=== PATIENT | male | born 1965 | race Caucasian/White ===

== ENCOUNTER 2019-10-08 17:44 | Emergency (ER) | payer SELFPAY ==
[~2019-10-08] VITALS: Ht 182.9 cm; Wt 149.7 kg
--- NOTE | 2019-10-08 17:54 | NUR ---
PT BIBRA TO ER BED 03. PER REPORT, PT WAS C/O CHEST PALPITATION. SVT NOTED IN THE FIELD. WAS GIVEN ADENOSINE 6MG AND 12MG. CONVERTED. NSR UPON ARRIVAL. PT IS GERMAN SPEAKING. PLACED ON MONITOR. VSS. AWAITING MD ATKINS.
[2019-10-08 18:20] LABS: BASOPHILS # (AUTO) 0.2 /CMM (0.0-0.2); EOSINOPHILS % (AUTO) 1.6 % (0.0-6.0); HEMATOCRIT 48 % (39-51); HEMOGLOBIN 16.2 g/dL (13.5-17.5); LYMPHOCYTES # (AUTO) 1.9 /CMM (0.8-4.8); LYMPHOCYTES % (AUTO) 22.4 % (20.0-44.0); MEAN CORPUSCULAR HGB CONC 34 g/dl (31.0-36.0); MEAN CORPUSCULAR VOLUME 89 fL (80-96); MONOCYTES # (AUTO) 0.5 /CMM (0.1-1.30); MONOCYTES % (AUTO) 6.3 % (2.0-12.0); NEUTROPHILS # (AUTO) 5.7 /CMM (1.8-8.9); NEUTROPHILS % (AUTO) 67.7 % (43.0-81.0); PLATELET COUNT (AUTO) 334 /CMM (150-450); RED BLOOD CELL COUNT(AUTO) 5.37 MIL/uL (4.5-6.0); WHITE BLOOD COUNT (AUTO) 8.5 K/uL (4.3-11.0)
[2019-10-08 18:23] LABS: CALCIUM, SERUM 9.2 mg/dL (8.5-10.1); CARBON DIOXIDE 26 mmol/L (21-32); CHLORIDE 105 mmol/L (98-107); CREATININE 1.3 mg/dL (0.6-1.3); GLUCOSE 154 mg/dL (74-106); POTASSIUM 3.5 mmol/L (3.5-5.1); SODIUM SERUM 143 mmol/L (136-145); UREA NITROGEN, BLOOD 17 mg/dL (7-18)
--- NOTE | 2019-10-08 18:50 | NUR ---
DR GONG AT BEDSIDE FOR EVAL.
--- NOTE | 2019-10-08 19:00 | NUR ---
REPORT GIVEN TO HEAVY MACHINERY ASSEMBLER NURSE LORELEI SPICER RN FOR DEBBY.
--- NOTE | 2019-10-08 19:09 | NUR ---
RECEIVED REPORT FROM GERONIMO SOLANO FOR DEBBY, PT IS AAOX4, NOT IN RESPIRATORY DISTRESS ,V/S STABLE, KEPT RESTED AND COMFORTABLE, WILL CONTINUE TO MONITOR.
--- NOTE | 2019-10-08 20:04 | NUR ---
ER PHLEB AT BEDSIDE FOR REPEAT TROPONIN.
[2019-10-08] MEDS ORDERED: METOPROLOL TARTRATE 50 MG TABLET ONE (20:55)
[2019-10-08] MEDS ORDERED: METOPROLOL TARTRATE 25 MG TABLET PO ONE (21:00)
[2019-10-08 21:02] VITALS: BP 145/92
--- NOTE | 2019-10-08 21:02 | NUR ---
IV removed. Catheter intact and site benign. Pressure and 4x4 applied to site. No bleeding noted. Patient discharged to home in stable condition. Written and verbal after care instructions given. Patient verbalizes understanding of instruction.
[2019-10-24] MEDS ORDERED: CLOP75TA15 PO (15:42)
[2019-10-24] MEDS ORDERED: VALS80TA2 PO (15:42)
== END 2019-10-08 21:03 | disposition home or self-care (01) ==
LOC: ER 17:47
DX: I47.1 Supraventricular tachycardia (principal)
CPT/HCPCS: 36415; 71045-TC; 80048-TC; 84484-TC; 85025-TC; 85730-TC

== ENCOUNTER 2019-10-22 14:25 | Inpatient (IN) | payer SELFPAY ==
[~2019-10-22] VITALS: Ht 182.9 cm; Wt 147.4 kg
[2019-10-22 15:18] LABS: BASOPHILS % (AUTO) 0.5 % (0.0-2.0); HEMATOCRIT 46 % (39-51); HEMOGLOBIN 15.5 g/dL (13.5-17.5); LYMPHOCYTES % (AUTO) 25.9 % (20.0-44.0); MEAN CORPUSCULAR HGB CONC 34 g/dl (31.0-36.0); MEAN CORPUSCULAR VOLUME 89 fL (80-96); MONOCYTES # (AUTO) 0.5 /CMM (0.1-1.30); MONOCYTES % (AUTO) 7.1 % (2.0-12.0); NEUTROPHILS # (AUTO) 4.9 /CMM (1.8-8.9); NEUTROPHILS % (AUTO) 64.5 % (43.0-81.0); PLATELET COUNT (AUTO) 304 /CMM (150-450); RED BLOOD CELL COUNT(AUTO) 5.17 MIL/uL (4.5-6.0); WHITE BLOOD COUNT (AUTO) 7.6 K/uL (4.3-11.0)
[2019-10-22 15:22] LABS: CALCIUM, SERUM 8.6 mg/dL (8.5-10.1); CREATININE 1.2 mg/dL (0.6-1.3); POTASSIUM 3.2 mmol/L (3.5-5.1)
[2019-10-22 15:35] LABS: ALBUMIN 3.9 g/dL (3.4-5.0); BILIRUBIN,DIRECT 0.1 mg/dL (0.0-0.2); BILIRUBIN,TOTAL 0.3 mg/dL (0.2-1.0); TOTAL PROTEIN, SERUM 7.6 g/dL (6.4-8.2)
--- NOTE | 2019-10-22 15:41 | NUR ---
Patient came to ED BIBN EMS HR 190 see triage note . Patient @ this moment denies pain hes on monitor ,gown no family @ bedside monitor SrR continue to monitor
[2019-10-22] MEDS ORDERED: ATOR40TA PO (16:34)
[2019-10-22] MEDS ORDERED: HYDR25TA4 PO (16:34)
[2019-10-22] MEDS ORDERED: ASPI-1169 PO (16:34)
[2019-10-22] MEDS ORDERED: LOSA50TA39 PO (16:34)
[2019-10-22] MEDS ORDERED: METO25TA3 PO (16:34)
[2019-10-22] MEDS ORDERED: POTASSIUM CHLORIDE 20 MEQ TAB.PRT.SR PO ONE ×2 (16:54→17:00)
[2019-10-22] MEDS ORDERED: IV NS 0.9% 1,000 ML BAG IV ONE (17:00)
[2019-10-22] MEDS ORDERED: Magnesium 1GM/D5W 100ML PREMIX 100 ML IV ONE (17:22)
--- NOTE | 2019-10-22 17:28 | NUR ---
Patient awake alert non distress Sr in the monitor patient on the phone talking to his son his son is up to date regarding plan of care continue to monitor
[2019-10-22] MEDS ORDERED: Magnesium 1GM/D5W 100ML PREMIX 100 ML IV SCH (17:30)
--- NOTE | 2019-10-22 18:11 | NUR ---
Called Lab made aware to draw troponin
[2019-10-22] MEDS ORDERED: ASPIRIN 81 MG TAB.CHEW PO ONE (19:00)
--- NOTE | 2019-10-22 19:10 | NUR ---
Transfer care report to Mary Ann MELTON
[2019-10-22] MEDS ORDERED: ASPIRIN 81 MG TAB.CHEW ONE (19:17)
[2019-10-22] MEDS ORDERED: HEPARIN INFUSION/D5W 500 ML IV ONE (19:35)
[2019-10-22] MEDS: HEPARIN INFUSION/D5W 500 ML IV PRN (19:57)
--- NOTE | 2019-10-22 20:14 | NUR ---
CALLED TO GIVE REPORT,RN NOT AVAILABLE. RN WILL CALL BACK
--- NOTE | 2019-10-22 20:39 | NUR ---
REPORT GIVEN TO GERONIMO GOODWIN
--- NOTE | 2019-10-22 21:23 | NUR ---
PT TRANSFERRED TO ROOM IN STABLE CONDITION
[2019-10-22] MEDS ORDERED: HEPARIN INFUSION/D5W 500 ML IV PRN (21:30)
[2019-10-22] MEDS ORDERED: ACETAMINOPHEN 325 MG TABLET PO PRN (21:30)
[2019-10-22] MEDS ORDERED: Z GUARD REMEDY 2 OZ OINT TP PRN (21:30)
[2019-10-22] MEDS ORDERED: ONDANSETRON HCL/PF 4 MG/2 ML VIAL IVP PRN (21:30)
--- NOTE | 2019-10-22 21:35 | NUR ---
RN OPENING NOTES RECEIVED REPORT FROM TECHNICIANS AND TRADES WORKERS STACEY. Pt ARRIVED TO THE FLOOR VIA GURNEY, WAS ABLE TO AMBULATE WITH STEADY GAIT TO ROOM BED. NO S/S OF ACUTE DISTRESS OR SOB NOTED. Pt DENIES HAVING ANY PAIN OR DISCOMFORT. Pt IS A/OX3, VERBAL, ABLE TO MAKE NEEDS KNOWN, URUGUAYAN SPEAKING ONLY. SPOKE WITH FAMILY MEMBER ON THE PHONE TO HELP TRANSLATE. Pt REFUSED SKIN ASSESSMENT; STATED THAT HE HAS NO WOUNDS ON HIS BODY. IV ACCESS ON RFA #18G, HEPARIN DRIP INFUSING FROM ER @1200UN/HR. 2ND IV ACCESS LOCATED ON LHAND #18G, SL. ON TELE MONITOR, WITH TELE READING SR 64. SAFETY MEASURES IN PLACE. BED LOW, LOCKED, HOB ELEVATED, SIDE RAILS UP, CALL LIGHT AND BEDSIDE TABLE WITHIN REACH. WILL CONTINUE TO MONITOR Pt's CONDITION AND SAFETY THROUGHOUT THE NIGHT.
[2019-10-22 22:30] VITALS: BP 152/90
[2019-10-22] MEDS: ATORVASTATIN 40 MG TABLET PO SCH (22:59)
--- NOTE | 2019-10-22 23:00 | NUR ---
RN NOTES MICHELLE MOORE PLACED NEW HEPARIN ORDER AND DC'd ER HEPARIN ORDER. CLARIFIED WITH KITCHEN LEAD HOSPITALIST MICHELLE MOORE, SAID TO CONTINUE THE SAME HEPARIN BAG FROM ER WITH THE SAME DRIP RATE OF 1200UN/HR. CALLED PHARMACY IN REGARDS TO THE NEW HEPARIN ORDER; EXPLAINED THAT THE DR DC'd THE ER ORDER BUT WANTED TO CONTINUE THE SAME HEPARIN BAG WITH THE SAME RATE. PER PHARMACY SAID THAT WE NEEDED TO SCAN IT TO SHOW THAT IT WAS CONTINUED ON THE FLOOR. ARTIFICIAL STONE APPLICATOR [facility] CO-SIGNED.
--- NOTE | 2019-10-22 23:05 | NUR ---
RN NOTES NOTIFIED MICHELLE MOORE OF Pt's REPEAT TROPONIN LEVEL OF 1.909. NO NEW ORDERS GIVEN. WILL CONTINUE TO MONITOR Pt
[2019-10-23] VITALS (21 sets, daily range): BP systolic 113–168; BP diastolic 47–122
--- NOTE | 2019-10-23 02:30 | NUR ---
RN NOTES PTT 40.6 Pt IS ALREADY AT THE MAX INFUSION RATE OF 1200UN/HR. NO CHANGE NEEDED IN RATE. REPEAT PTT ORDERED AT 0830.
[2019-10-23 06:30] LABS: BASOPHILS % (AUTO) 0.5 % (0.0-2.0); EOSINOPHILS % (AUTO) 2.5 % (0.0-6.0); HEMATOCRIT 43 % (39-51); HEMOGLOBIN 14.4 g/dL (13.5-17.5); LYMPHOCYTES # (AUTO) 3.2 /CMM (0.8-4.8); LYMPHOCYTES % (AUTO) 39.7 % (20.0-44.0); MEAN CORPUSCULAR HGB CONC 33 g/dl (31.0-36.0); MEAN CORPUSCULAR VOLUME 89 fL (80-96); MONOCYTES # (AUTO) 0.7 /CMM (0.1-1.30); MONOCYTES % (AUTO) 8.7 % (2.0-12.0); NEUTROPHILS # (AUTO) 3.9 /CMM (1.8-8.9); NEUTROPHILS % (AUTO) 48.6 % (43.0-81.0); PLATELET COUNT (AUTO) 282 /CMM (150-450); RED BLOOD CELL COUNT(AUTO) 4.89 MIL/uL (4.5-6.0)
--- NOTE | 2019-10-23 06:35 | NUR ---
RN CLOSING NOTES NO SIGNIFICANT CHANGES IN Pt's CONDITION. NO S/S OF ACUTE DISTRESS OR SOB NOTED DURING THE NIGHT. Pt DENIED HAVING ANY CP OR DISCOMFORT DURING THE NIGHT. Pt IS RESTING COMFORTABLY IN BED. ALL NEEDS MET AND ATTENDED TO. SAFETY MEASURES IN PLACE. BED LOW, LOCKED, HOB ELEVATED, SIDE RAILS UP, CALL LIGHT AND BEDSIDE TABLE WITHIN REACH. TELE READING SR 60. WILL ENDORSE TO DAYSHIFT RN FOR Pt's DEBBY.
[2019-10-23 06:55] LABS: THYROID STIMULATING HORMONE 1.987 uIU/mL (0.358-3.74)
[2019-10-23 07:00] LABS: ALBUMIN 3.5 g/dL (3.4-5.0); BILIRUBIN,TOTAL 0.6 mg/dL (0.2-1.0); CALCIUM, SERUM 8.5 mg/dL (8.5-10.1); MAGNESIUM 2.1 mg/dL (1.8-2.4); PHOSPHORUS 2.9 mg/dL (2.5-4.9); POTASSIUM 3.4 mmol/L (3.5-5.1); TOTAL PROTEIN, SERUM 6.9 g/dL (6.4-8.2)
[2019-10-23] MEDS: PANTOPRAZOLE 40 MG TABLET.DR PO SCH (07:30)
--- NOTE | 2019-10-23 07:30 | NUR ---
Tele/RN Opening Note Received patient AO x 3-4, able to responds all stimuli, denies chest pain or any discomfort. Skin is warm to touch, clean/dry. Respiratory even and unlabored with room air. Patient on heparin drip, no s/s of bleeding or adverse reaction observed. Keep lower position of the bed with locked wheel for safety. Call light within reach, will continue to monitor.
[2019-10-23] MEDS: IV NS 0.9% 1,000 ML IV PRN ×2 (07:55→20:00)
[2019-10-23] MEDS: ASPIRIN 81 MG TAB.CHEW PO SCH (08:49)
[2019-10-23] MEDS: VALSARTAN 80 MG TABLET PO SCH ×2 (08:49→12:41)
[2019-10-23] MEDS: METOPROLOL SUCCINATE 25 MG TAB.SR.24H PO SCH ×2 (08:50→12:42)
[2019-10-23] MEDS ORDERED: HYDROCHLOROTHIAZIDE 25 MG TABLET PO SCH (09:00)
[2019-10-23] MEDS ORDERED: LOSARTAN POTASSIUM 50 MG TABLET PO SCH (09:00)
--- NOTE | 2019-10-23 09:45 | NUR ---
Patient signed cardiac catheter consent form, and went to procedure in stable condition. v/s:bp-122/86, p-59, r-20, t-97.8, H8gca-70% with room air.
[2019-10-23] MEDS ORDERED: IODIXANOL 150 ML IV ONE (10:09)
[2019-10-23] MEDS ORDERED: VERAPAMIL HCL IV 5 MG/2 ML VIAL ONE (10:09)
[2019-10-23] MEDS ORDERED: LIDOCAINE HCL/PF 1% 30 ML SDV ONE (10:09)
[2019-10-23] MEDS ORDERED: HEPARIN SODIUM, PORCINE 1,000 UNIT/ML VIAL ONE (10:10)
[2019-10-23] MEDS ORDERED: NITROGLYCERIN ICAR 1,000 MCG/10 ML VIAL ICAR ONE (10:10)
[2019-10-23] MEDS ORDERED: IV NS 0.9% 500 ML IV ONE (10:11)
[2019-10-23] MEDS ORDERED: IV SET PRIMARY PUMP SET 1 EA INFUS.SET MC ONE (10:11)
[2019-10-23] MEDS ORDERED: FENTANYL PF 100MCG/2ML AMPUL ONE (10:26)
[2019-10-23] MEDS ORDERED: MIDAZOLAM HCL 2 MG/2ML VIAL ONE (10:26)
[2019-10-23] MEDS ORDERED: POTASSIUM CL. PREMIX PERIPHER. 50 ML IV SCH ×2 (10:30→13:00)
[2019-10-23] MEDS ORDERED: CLOPIDOGREL BISULFATE 300 MG TABLET ONE (10:59)
[2019-10-23] MEDS ORDERED: ASPIRIN 325 MG TABLET ONE (10:59)
[2019-10-23] MEDS ORDERED: IODIXANOL 320MG/ML 50 ML IV ONE (11:02)
[2019-10-23] MEDS ORDERED: IV NS 0.9% 100 ML IV ONE (11:07)
--- NOTE | 2019-10-23 11:45 | NUR ---
Given report ICU/Ector RN.
--- NOTE | 2019-10-23 12:00 | NUR ---
sericulturist received pt from labor economics professor aox4, no distress noted dressing R RADIAL from labor economics professor cdi no s/s of bleeding noted, dc heparin drip p dr. Esquivel, gave held bp meds in the am. p. dr. Esquivel given half the dose of metorolol xr, orders followed will continue to monitor.
[2019-10-23] MEDS: ATORVASTATIN 40 MG TABLET PO SCH (21:14)
[2019-10-24] VITALS (9 sets, daily range): BP systolic 139–159; BP diastolic 64–97
--- NOTE | 2019-10-24 04:39 | NUR ---
RN NOTES RECEIVED PATIENT AWAKE IN BED RESTING COMFORTABLY WATCHING TV. IN NO APPARENT DISTRESS, BREATHING EVEN AND UNLABORED. ALERT AND ORIENTED WITH NO COMPLAINT OF PAIN.. VITAL SIGNS WITHIN NORMAL LIMITS. OFFERED PATIENT BED BATH AND TO CHANGED CLOTHINGS AND BEDDINGS X 3, BUT PATIENT CONSISTENTLY REFUSED. ON ROOM AIR WITH 02SAT 96-98%. FOR TRANSFER TO [facility] AT 0530 ROOM 310 BED 1. PATIENT IS CONTINENT USING URINAL. AMBULATORY, STEADY BUT NEEDS SOME ASSIST. WILL ENDORSE TO 3WEST NURSE AT BEDSIDE.
[2019-10-24 04:51] LABS: BASOPHILS % (AUTO) 0.4 % (0.0-2.0); EOSINOPHILS % (AUTO) 2.3 % (0.0-6.0); HEMATOCRIT 42 % (39-51); HEMOGLOBIN 14.6 g/dL (13.5-17.5); LYMPHOCYTES # (AUTO) 2.3 /CMM (0.8-4.8); LYMPHOCYTES % (AUTO) 28.6 % (20.0-44.0); MEAN CORPUSCULAR HGB CONC 35 g/dl (31.0-36.0); MEAN CORPUSCULAR VOLUME 87 fL (80-96); MONOCYTES # (AUTO) 0.7 /CMM (0.1-1.30); MONOCYTES % (AUTO) 9.3 % (2.0-12.0); NEUTROPHILS # (AUTO) 4.7 /CMM (1.8-8.9); NEUTROPHILS % (AUTO) 59.4 % (43.0-81.0); PLATELET COUNT (AUTO) 275 /CMM (150-450); RED BLOOD CELL COUNT(AUTO) 4.87 MIL/uL (4.5-6.0); WHITE BLOOD COUNT (AUTO) 7.9 K/uL (4.3-11.0)
[2019-10-24 05:17] LABS: CALCIUM, SERUM 8.4 mg/dL (8.5-10.1); CREATININE 0.8 mg/dL (0.6-1.3); MAGNESIUM 1.9 mg/dL (1.8-2.4); PHOSPHORUS 2.8 mg/dL (2.5-4.9); POTASSIUM 3.3 mmol/L (3.5-5.1)
[2019-10-24] MEDS: IV NS 0.9% 1,000 ML IV PRN (05:19)
--- NOTE | 2019-10-24 05:45 | NUR ---
MEDICAL SUPPORT SPECIALIST NOTES PT TRANSFERRED FROM ICU VIA BED IN STABLE CONDITION. PT A/O X3 AND ABLE TO MAKE NEEDS KNOWN AND TURKISH SPEAKING. RESPIRATIONS EVEN AND UNLABORED WITH NO S/S OF ACUTE DISTRESS OR SOB NOTED. NO COMPLAINTS OF PAIN AT THIS TIME. PT WITH LHAND #18G PATENT AND INTACT INFUSING NS @100CC/HR. SAFETY MEASURES IN PLACE WITH BED IN LOWEST LOCKED POSITION WITH SIDE RAILS UP X2. CALL LIGHT WITHIN REACH. WILL CONTINUE TO MONITOR.
--- NOTE | 2019-10-24 07:44 | NUR ---
GLUE CLAMP OPERATOR OPENING NOTES RECEIVED PATIENT IN BED, AWAKE, A/O X4. PATIENT BREATHING ON ROOM AIR; BREATHING EVEN AND UNLABORED. NO SIGNS OF SOB AT THIS TIME. PATIENT DENIES ANY PAIN. L HAND IV ACCESS PRESENT AND INFUSING NS AT 100 MLS /HR. SAFETY PRECAUTIONS IN PLACE; BED IN LOW POSITION AND LOCKED, RAILS UP X2, CALL LIGHT WITHIN REACH. WILL CONTINUE TO MONITOR PATIENT.
[2019-10-24] MEDS: PANTOPRAZOLE 40 MG TABLET.DR PO SCH (07:55)
[2019-10-24] MEDS: ASPIRIN 81 MG TAB.CHEW PO SCH (08:19)
[2019-10-24] MEDS: POTASSIUM CHLORIDE 20 MEQ TAB.PRT.SR PO SCH ×3 (08:59→11:20)
[2019-10-24] MEDS ORDERED: CLOPIDOGREL BISULFATE 75 MG TABLET PO SCH (09:00)
[2019-10-24] MEDS ORDERED: CLOP75TA15 PO (15:42)
[2019-10-24] MEDS ORDERED: VALS80TA2 PO (15:42)
--- NOTE | 2019-10-24 16:48 | NUR ---
MS BEAN SNAPPER NOTES PATIENT DISCHARGED HOME IN MEDICALLY STABLE CONDITION. PATIENT A/O X4. NO PAIN REPORTED BY THE PATIENT. DURING DISCHARGE ALL VITAL SIGNS WERE WNL. ALL DISCHARGE PAPERWORK PROVIDED TO THE PATIENT AND EXPLAINED. TEACHING PROVIDED REGARDING HIS NEW AND CURRENT MEDICATIONS. PATIENT VERBALIZED UNDERSTANDING. VALUABLES ACCOUNTED FOR AND VALUABLE FORM SIGNED ALONG WITH THE DISCHARGE PAPERWORK. WRIST BAND AND IV ACCESS REMOVED PRIOR TO PATIENT LEAVING THE FLOOR. PATIENT LEFT THE FLOOR ACCOMPANIED BY RN. PATIENT LEFT THE [facility] VIA PRIVATE CAR WITH THE FAMILY.
== END 2019-10-24 16:40 | disposition home or self-care (01) | DRG 246 ==
LOC: ER 14:26 → TELE 20:11 → ICU 10-23 12:37 → TELE 10-24 05:40 → MED 10-24 11:28
PROVIDERS: ADMIT Nurse Practitioner Acute Care; ATTEND Registered Nurse
DX: I47.1 Supraventricular tachycardia (principal); I21.A1 Myocardial infarction type 2; Z68.42 Body mass index [BMI] 45.0-49.9, adult; E78.5 Hyperlipidemia, unspecified; E66.01 Morbid (severe) obesity due to excess calories; I25.10 Atherosclerotic heart disease of native coronary artery without angina pectoris; E83.42 Hypomagnesemia; E87.6 Hypokalemia; F17.210 Nicotine dependence, cigarettes, uncomplicated; I10 Essential (primary) hypertension; R74.0 Nonspecific elevation of levels of transaminase and lactic acid dehydrogenase [LDH]; Z79.82 Long term (current) use of aspirin
CPT/HCPCS: 36415; 71045-TC; 80048-TC; 80053-TC; 80061-TC; 80076-TC; 83735-TC; 83880; 84100-TC; 84443-TC; 84484-TC; 85025-TC; 85730-TC; 87081-TC; 92980; 92982; 93307-TC; A4216; C1725; C1887; G0378; G0500; J1644; J2250; J3010; J3475; J3480; J3490; J7030; J7040; Q9967

== ENCOUNTER 2021-06-02 23:40 | Emergency (ER) | payer SELFPAY ==
[~2021-06-02] VITALS: Ht 182.9 cm; Wt 132.9 kg
[~2021-06-02 23:40] MED LIST: ASPI-1169 PO; ATOR40TA PO; CLOP75TA15 PO; HYDR25TA4 PO; LOSA50TA39 PO; METO25TA3 PO; VALS80TA2 PO
[2021-06-03 00:09] LABS: BASOPHILS % (AUTO) 0.5 % (0.0-2.0); EOSINOPHILS % (AUTO) 1.6 % (0.0-6.0); HEMATOCRIT 48 % (39-51); HEMOGLOBIN 16.2 g/dL (13.5-17.5); LYMPHOCYTES # (AUTO) 2.8 K/uL (0.8-4.8); LYMPHOCYTES % (AUTO) 28.6 % (20.0-44.0); MEAN CORPUSCULAR HGB CONC 34 g/dl (31.0-36.0); MEAN CORPUSCULAR VOLUME 89 fL (80-96); MONOCYTES # (AUTO) 0.7 K/uL (0.1-1.30); MONOCYTES % (AUTO) 6.7 % (2.0-12.0); NEUTROPHILS # (AUTO) 6.2 K/uL (1.8-8.9); NEUTROPHILS % (AUTO) 62.6 % (43.0-81.0); PLATELET COUNT (AUTO) 310 K/uL (150-450); RED BLOOD CELL COUNT(AUTO) 5.36 MIL/uL (4.5-6.0)
--- NOTE | 2021-06-03 00:10 | NUR ---
PATIENT BIBRA FROM HOME C/O TACHYCARDIA, HR RATE NOTED AT 170-180. GIVEN ADENOSINE RESIDENTIAL MANAGER ME NOW 86. PATIENT DENIES ANY DISCOMFORT AT THIS TIME. PATIENT IS A/O X 4, RR EVEN AND UNLABORED, NO SOB NOTED. PATIENT CONNECTED TO POSTBED STITCHER AND POX.
[2021-06-03 00:21] LABS: CALCIUM, SERUM 9.3 mg/dL (8.5-10.1); CARBON DIOXIDE 32 mmol/L (21-32); CHLORIDE 101 mmol/L (98-107); CREATININE 1.3 mg/dL (0.6-1.3); GLUCOSE 95 mg/dL (74-106); POTASSIUM 3.1 mmol/L (3.5-5.1); SODIUM SERUM 139 mmol/L (136-145); UREA NITROGEN, BLOOD 24 mg/dL (7-18)
[2021-06-03 00:34] LABS: ALANINE AMINOTRANSFERASE 59 U/L (12-78); ALBUMIN 4.5 g/dL (3.4-5.0); ALKALINE PHOSPHATASE 71 U/L (46-116); ASPARTATE AMINOTRANSFERASE 30 U/L (15-37); BILIRUBIN,DIRECT 0.1 mg/dL (0.0-0.2); BILIRUBIN,TOTAL 0.5 mg/dL (0.2-1.0); TOTAL PROTEIN, SERUM 8.7 g/dL (6.4-8.2)
[2021-06-03 01:48] VITALS: BP 127/79
--- NOTE | 2021-06-03 01:48 | NUR ---
Patient discharged to home in stable condition. Written and verbal after care instructions given. Patient verbalizes understanding of instruction.
== END 2021-06-03 01:48 | disposition home or self-care (01) ==
LOC: ER 23:45
DX: I47.1 Supraventricular tachycardia (principal); I10 Essential (primary) hypertension; I25.10 Atherosclerotic heart disease of native coronary artery without angina pectoris; E78.5 Hyperlipidemia, unspecified; Z79.899 Other long term (current) drug therapy; Z79.82 Long term (current) use of aspirin
CPT/HCPCS: 36415; 71045-TC; 80048-TC; 80076-TC; 83735-TC; 83880; 84484-TC; 85025-TC; 85730-TC

== ENCOUNTER 2024-03-04 18:39 | Emergency (ER) | payer OTHER ==
[~2024-03-04] VITALS: Ht 180.3 cm; Wt 117.9 kg
--- NOTE | 2024-03-04 18:41 | NUR ---
[id number] HOME FOR CHEST DISCOMFORT. TRAINING MGR PT IN SVT AND ADENOSINE 12MG GIVEN BY EMS. CONVERTED TO NSR. PT CURRENTLY HAS NO CHEST PAIN. PT CONNECTED TO MONITOR AND WAITING FOR ER MD ATKINS.
--- NOTE | 2024-03-04 18:42 | NUR ---
ALLIE RUBALCAVA AT BEDSIDE FOR EKG
--- NOTE | 2024-03-04 18:42 | NUR ---
ALLIE CAT AT BEDSIDE FOR EVAL.
[2024-03-04 19:06] LABS: CALCIUM, SERUM 9.2 mg/dL (8.5-10.1); CARBON DIOXIDE 26 mmol/L (21-32); CHLORIDE 106 mmol/L (98-107); CREATININE 1.1 mg/dL (0.6-1.3); GLUCOSE 111 mg/dL (74-106); POTASSIUM 3.6 mmol/L (3.5-5.1); SODIUM SERUM 139 mmol/L (136-145); UREA NITROGEN, BLOOD 24 mg/dL (7-18)
[2024-03-04 19:11] LABS: BASOPHILS # (AUTO) 0.1 K/uL (0.0-0.2); BASOPHILS % (AUTO) 0.6 % (0.0-2.0); EOSINOPHILS # (AUTO) 0.2 K/uL (0.0-0.7); EOSINOPHILS % (AUTO) 1.8 % (0.0-6.0); HEMATOCRIT 46 % (39-51); HEMOGLOBIN 14.9 g/dL (13.5-17.5); LYMPHOCYTES # (AUTO) 3.1 K/uL (0.8-4.8); LYMPHOCYTES % (AUTO) 31.9 % (20.0-44.0); MEAN CORPUSCULAR HEMOGLOBIN 30 PG (26.0-33.0); MEAN CORPUSCULAR HGB CONC 33 g/dl (31.0-36.0); MEAN CORPUSCULAR VOLUME 91 fL (80-96); MONOCYTES # (AUTO) 0.9 K/uL (0.1-1.30); MONOCYTES % (AUTO) 8.8 % (2.0-12.0); NEUTROPHILS # (AUTO) 5.6 K/uL (1.8-8.9); NEUTROPHILS % (AUTO) 56.9 % (43.0-81.0); PLATELET COUNT (AUTO) 277 K/uL (150-450); RED BLOOD CELL COUNT(AUTO) 5.03 MIL/uL (4.5-6.0); RED CELL DISTRIBUTION WIDTH 14.5 % (11.5-15.0); WHITE BLOOD COUNT (AUTO) 9.8 K/uL (4.3-11.0)
--- NOTE | 2024-03-04 19:15 | NUR ---
ALYSE SON [phone] ON PHONE FOR TRANSLATION
--- NOTE | 2024-03-04 20:03 | NUR ---
PT OK TO DISCHARGE PER DR MAURICIO. IV removed. Catheter intact and site benign. Pressure and 4x4 applied to site. No bleeding noted.Patient discharged to home in stable condition. Written and verbal after care instructions given. Patient verbalizes understanding of instruction.Patient is awake and alert to self, day, and place. PT ambulatory with a steady gait.
[2024-03-05 03:02] VITALS: BP 150/94; TEMP 98.2; O2SAT 98
== END 2024-03-04 20:30 | disposition home or self-care (01) ==
LOC: ER 18:42
DX: I47.10 Supraventricular tachycardia, unspecified (principal); I10 Essential (primary) hypertension; E78.5 Hyperlipidemia, unspecified; I25.10 Atherosclerotic heart disease of native coronary artery without angina pectoris; Z79.891 Long term (current) use of opiate analgesic; Z79.899 Other long term (current) drug therapy; Z79.82 Long term (current) use of aspirin
CPT/HCPCS: 36415; 71045-TC; 80048-TC; 84484-TC; 85025-TC

== ENCOUNTER 2024-05-26 15:28 | Emergency (ER) | payer OTHER ==
[~2024-05-26] VITALS: Ht 180.3 cm; Wt 131.5 kg
[2024-05-26] MEDS ORDERED: ADENOSINE 6 MG/2 ML VIAL ONE ×2 (15:45→15:46)
[2024-05-26] MEDS: ADENOSINE 6 MG/2 ML VIAL IVP ONE ×2 (16:01→16:02)
[2024-05-26 16:04] LABS: BASOPHILS # (AUTO) 0.1 K/uL (0.0-0.2); BASOPHILS % (AUTO) 0.5 % (0.0-2.0); EOSINOPHILS # (AUTO) 0.1 K/uL (0.0-0.7); EOSINOPHILS % (AUTO) 1.1 % (0.0-6.0); HEMATOCRIT 46 % (39-51); HEMOGLOBIN 15.8 g/dL (13.5-17.5); LYMPHOCYTES # (AUTO) 3.5 K/uL (0.8-4.8); LYMPHOCYTES % (AUTO) 30.4 % (20.0-44.0); MEAN CORPUSCULAR HEMOGLOBIN 30 PG (26.0-33.0); MEAN CORPUSCULAR HGB CONC 34 g/dl (31.0-36.0); MEAN CORPUSCULAR VOLUME 88 fL (80-96); MONOCYTES # (AUTO) 1.1 K/uL (0.1-1.30); MONOCYTES % (AUTO) 9.4 % (2.0-12.0); NEUTROPHILS # (AUTO) 6.8 K/uL (1.8-8.9); NEUTROPHILS % (AUTO) 58.6 % (43.0-81.0); PLATELET COUNT (AUTO) 317 K/uL (150-450); RED BLOOD CELL COUNT(AUTO) 5.29 MIL/uL (4.5-6.0); RED CELL DISTRIBUTION WIDTH 14.1 % (11.5-15.0); WHITE BLOOD COUNT (AUTO) 11.6 K/uL (4.3-11.0)
[2024-05-26 16:14] LABS: CALCIUM, SERUM 9.2 mg/dL (8.5-10.1); CARBON DIOXIDE 25 mmol/L (21-32); CHLORIDE 104 mmol/L (98-107); CREATININE 1.1 mg/dL (0.6-1.3); GLUCOSE 127 mg/dL (74-106); POTASSIUM 3.5 mmol/L (3.5-5.1); SODIUM SERUM 143 mmol/L (136-145); UREA NITROGEN, BLOOD 19 mg/dL (7-18)
[2024-05-26 16:17] LABS: INR 0.99 (0.91-1.10); PARTIAL THROMBOPLASTIN TIME 32.8 SEC (24.3-34.3); PROTHROMBIN TIME 10.5 SECS (9.2-11.1)
[2024-05-26 16:26] LABS: ALANINE AMINOTRANSFERASE 32 U/L (12-78); ALBUMIN 4.1 g/dL (3.4-5.0); ALKALINE PHOSPHATASE 67 U/L (46-116); ASPARTATE AMINOTRANSFERASE 16 U/L (15-37); BILIRUBIN,DIRECT 0.1 mg/dL (0.0-0.2); BILIRUBIN,TOTAL 0.7 mg/dL (0.2-1.0); NT-PRO BNP 140 pg/mL (0-125); TOTAL PROTEIN, SERUM 8.1 g/dL (6.4-8.2)
[2024-05-26 17:03] VITALS: BP 139/90; TEMP 98; O2SAT 98
== END 2024-05-26 17:04 | disposition home or self-care (01) ==
LOC: ER 15:31
DX: I47.10 Supraventricular tachycardia, unspecified (principal); I11.9 Hypertensive heart disease without heart failure; I25.10 Atherosclerotic heart disease of native coronary artery without angina pectoris; E78.5 Hyperlipidemia, unspecified; Z79.02 Long term (current) use of antithrombotics/antiplatelets; Z79.82 Long term (current) use of aspirin; Z86.79 Personal history of other diseases of the circulatory system
CPT/HCPCS: 99291; 96374; 93005; 71045; 85025; 80048; 80076; 36415; 84484; 85730; 83880; J0153 ×2